=== PATIENT | female | born 1960 | race Caucasian/White ===

== ENCOUNTER 2019-01-20 12:11 | Inpatient (IN) | payer MEDICARE, MEDICAID ==
[2019-01-20] VITALS: BP 91/57
[~2019-01-20] VITALS: Ht 157.5 cm; Wt 78.8 kg
[2019-01-20] MEDS ORDERED: PROTONIX20 MG (12:18)
[2019-01-20] MEDS ORDERED: PROVERA2.5 MG (12:18)
[2019-01-20] MEDS ORDERED: FUROSEMIDE10 MG/M1 (12:19)
[2019-01-20] MEDS ORDERED: LISINOPRIL2.5 MG (12:19)
[2019-01-20] MEDS ORDERED: SANDIMMUNE25 MG (12:19)
[2019-01-20] MEDS ORDERED: PREDNISONE1 MG (12:19)
[2019-01-20] MEDS ORDERED: MORPHINE SULFAT15 M4 (12:19)
[2019-01-20 12:55] LABS: BASOPHILS 0.2 % (0-2); EOSINOPHILS 0.7 % (0-7); HEMATOCRIT 34.4 % (36.0-48.0); HEMOGLOBIN 11.3 g/dL (12-16); IMMATURE GRANULOCYTES 0.2 % (0-5); LYMPHOCYTES 7.5 % (15-50); MCHC 32.8 g/dL (31.0-37.0); MCV 85.4 fL (80.0-100.0); MEAN PLATELET VOLUME 9.6 fL (7.4-10.4); NEUTROPHILS 82.4 % (40-80); PLATELET COUNT 311 10x3/uL (130-400); RBC 4.03 10x6/uL (4.00-5.40); RDW 14.2 % (11.5-14.5); WBC 12.6 10x3/uL (4.8-10.8)
[2019-01-20 13:18] LABS: ALKALINE PHOSPHATASE 149 U/L (46-116); BILIRUBIN - TOTAL 1.25 mg/dL (0.2-1.3); CALC OSMOLALITY 274 mosm/kg (275-300); CALCIUM 9.7 mg/dL (8.5-10.1); CARBON DIOXIDE 18.7 mmol/L (21.0-32.0); CHLORIDE - SERUM 100 mmol/L (98-107); CREATININE - SERUM 1.7 mg/dL (0.6-1.3); GLUCOSE 200 mg/dL (74-106); POTASSIUM - SERUM 4.5 mmol/L (3.5-5.1); PROTEIN - SERUM 7.2 g/dL (6.4-8.2); SODIUM 130 mmol/L (136-145); UREA NITROGEN 34 mg/dL (7-18); eGFR NON AFRICAN AMERICAN 33 mL/min (90-120)
[2019-01-20 13:30] LABS: ALBUMIN 2.5 g/dL (3.4-5.0); ALT (SGPT) < 6 U/L (10-68)
--- NOTE | 2019-01-20 17:15 | NUR ---
PT PULLED OUT IV AT THIS TIME. FLUID BOLUS STOPPED. ATTEMPTING TO OBTAIN IV ACCESS AT THIS TIME.
[2019-01-20 18:20] LABS: APPEARANCE CLEAR (CLEAR); BILIRUBIN NEGATIVE (NEGATIVE); COLOR BROWN (YELLOW); GLUCOSE NEGATIVE (NEGATIVE); KETONE NEGATIVE (NEGATIVE); NITRITE NEGATIVE (NEGATIVE); PROTEIN 1+ mg/dL (NEGATIVE); UROBILINOGEN NORMAL (NORMAL)
[2019-01-20 18:23] LABS: EPITHELIAL CELLS 0-5 /hpf (0-5); RED CELLS - URINE 0-5 /hpf (0-5)
[2019-01-20 18:24] LABS: BACTERIA MANY /hpf (NONE SEEN); YEAST <1+ /hpf (NONE SEEN)
--- NOTE | 2019-01-20 19:16 | NUR ---
REPORT TO ALLISON GODINEZ
--- NOTE | 2019-01-20 20:50 | NUR ---
PT ARRIVED VIA BED. TRANSFERRED PT OVER BY SHEET TO UNIT BED WITH ASSISTANCE OF ER NURSE AND METAL BUGGY OPERATOR. CL IN REACH. BED IN LOW SIDE RAILS X2. DENIES NEEDS AT THIS TIME. A/O X4. WCTM
[2019-01-20 21:09] VITALS: BP 91/57
[2019-01-20] MEDS ORDERED: ESTRACE 0.5 MG0.5 MG PO (21:34)
[2019-01-20] MEDS ORDERED: ROCALTROL0.5 MCG PO (21:35)
[2019-01-20] MEDS ORDERED: VITAMIN D31000 UNIT PO (21:36)
--- NOTE | 2019-01-20 23:15 | NUR ---
PT COMPLAINING OF NECK AND BACK PAIN. PRN MORPHINE GIVEN IN R HAND/WRIST IV PER MAR. ALSO PLACED ON BEDPAN. INCONT BEFORE PLACED ON BEDPAN. WCTM
[2019-01-20 23:23] VITALS: BP 115/58
--- NOTE | 2019-01-20 23:41 | NUR ---
EDUCATED PT ABOUT SCD'S AND THE IMPORTANCE OF HAVING THEM SINCE SHE HAS NOT BEEN OUT OF BED MUCH. PT STATED "OKAY ILL GIVE THEM A TRY". THIS NURSE GOES AND GETS MACHINE AND ATTACHES IT TO PT AND THIS NURSE TURNS THE MACHINE ON FOR 2 SECONDS AND PT STATES "NO I CANT DO THIS THEY ARE ALREADY IRRITATING ME" THIS NURSE EDUCATED THAT SHE HAD NOT HAD THEM ON LONG AND PT STATED " IV HAD THESE BEFORE AND IM SORRY I CANT WEAR THEM." REMOVED SCD'S AND THEY ARE IN PT'S ROOM IF NEEDED. PT IS REFUSING SCD
[2019-01-21 00:24] VITALS: BP 91/57; BMI 26.8
--- NOTE | 2019-01-21 00:32 | NUR ---
ALERT AND ORIENTED X4. UP AD MC. RIGHT LEG SWOLLEN AND PT STATES THT 'S NOT NORMAL. NO REDNESS OR SWELLING AND HAS ROM. IV TO RIGHT WRIST WITH NO REDNESS OR SWELLING AND DSG INTACT. MARYAN AREA UNDER LEFT EYE. AREA IS CIRCULAR IN SHAPE. WEARS BRIEFS IN BED. DENIES ANY NEEDS AT THIS TIME.
--- NOTE | 2019-01-21 00:34 | NUR ---
OPEN AREA TO TOP OF THIRD DIGIT ON RIGHT HAND. PT STATES IT WAS A BLISTER.
--- NOTE | 2019-01-21 03:27 | NUR ---
I have reviewed this patient and I concur with the Shift Assessment completed by the Licensed Practical Nurse today this shift.
[2019-01-21 04:00] VITALS: BP 98/56
--- NOTE | 2019-01-21 05:42 | NUR ---
PT RESTING QUIETLY. CL IN REACH. NO DISTRESS NOTED. CPOC
[2019-01-21 07:45] LABS: BASOPHILS 0.2 % (0-2); EOSINOPHILS 4.1 % (0-7); HEMATOCRIT 29.5 % (36.0-48.0); HEMOGLOBIN 9.4 g/dL (12-16); IMMATURE GRANULOCYTES 0.2 % (0-5); MCH 26.9 pg (26.0-34.0); MCHC 31.9 g/dL (31.0-37.0); MCV 84.3 fL (80.0-100.0); MEAN PLATELET VOLUME 9.4 fL (7.4-10.4); MONOCYTES 8.3 % (2-11); NEUTROPHILS 75.2 % (40-80); PLATELET COUNT 319 10x3/uL (130-400); RDW 14.3 % (11.5-14.5); WBC 10.2 10x3/uL (4.8-10.8)
[2019-01-21 07:57] VITALS: BP 148/81
[2019-01-21 08:15] LABS: ANION GAP 13.7 mmol/L (8-16); CALCIUM 9.8 mg/dL (8.5-10.1); CARBON DIOXIDE 22.6 mmol/L (21.0-32.0); CREATININE - SERUM 1.9 mg/dL (0.6-1.3); MAGNESIUM - SERUM 1.5 mg/dL (1.8-2.4); PHOSPHOROUS 3.6 mg/dL (2.5-4.9); POTASSIUM - SERUM 4.3 mmol/L (3.5-5.1)
--- NOTE | 2019-01-21 12:33 | NUR ---
I have reviewed this patient and I concur with the Shift Assessment completed by the Licensed Practical Nurse today this shift.
[2019-01-21 12:50] VITALS: BP 172/86
[2019-01-21 13:12] VITALS: BMI 26.7
[2019-01-21 16:15] VITALS: Ht 157.5 cm; Wt 78.8 kg
[2019-01-21 16:52] VITALS: BP 158/89
--- NOTE | 2019-01-21 19:10 | NUR ---
PT ALERT AND ORIENTED LCTA SKIN WARM AND DRY PULSES INTACT EDEMA TO FEET MORE SO ON THE RT PT MOST COINCERNED ABOUT MEDS AND LAB VALUES BED LOW AND LOCKED AND CALL LIGHT IS WITH PT
[2019-01-21 20:00] VITALS: BP 154/88
[2019-01-22 04:00] VITALS: BP 150/76
[2019-01-22 04:46] LABS: BASOPHILS 0.1 % (0-2); EOSINOPHILS 1.9 % (0-7); HEMATOCRIT 28.1 % (36.0-48.0); HEMOGLOBIN 9.1 g/dL (12-16); IMMATURE GRANULOCYTES 0.2 % (0-5); LYMPHOCYTES 15.3 % (15-50); MCH 27.2 pg (26.0-34.0); MCHC 32.4 g/dL (31.0-37.0); MCV 83.9 fL (80.0-100.0); MEAN PLATELET VOLUME 9.2 fL (7.4-10.4); MONOCYTES 8.3 % (2-11); NEUTROPHILS 74.2 % (40-80); PLATELET COUNT 319 10x3/uL (130-400); RBC 3.35 10x6/uL (4.00-5.40); RDW 14.2 % (11.5-14.5); WBC 8.9 10x3/uL (4.8-10.8)
[2019-01-22 05:08] LABS: ANION GAP 16.4 mmol/L (8-16); CALCIUM 9.3 mg/dL (8.5-10.1); CARBON DIOXIDE 21.1 mmol/L (21.0-32.0); CREATININE - SERUM 1.5 mg/dL (0.6-1.3); POTASSIUM - SERUM 4.5 mmol/L (3.5-5.1)
--- NOTE | 2019-01-22 07:23 | NUR ---
INITIAL ROUNDING, BEDSIDE SHIFT REPORT COMPLETE. PATIENT IS AWAKE AND WATCHING TV IN THE SEMI FOWLERS POSITION. SHE REPORTS PAIN OF 7/10 IN HER LEGS, SHE IS AWAITING A VENOUS DOPPLER TO BE DONE ORDERED. CALL LIGHT IN REACH, REFUSING SCD PER RIPPER OPERATOR NURSE.
[2019-01-22 08:30] VITALS: BP 149/79
[2019-01-22 12:59] VITALS: BP 167/91
[2019-01-22 14:22] LABS: % SATURATION 7 % (15-55); IRON 10 ug/dl (35-150); TOTAL IRON BIND CAPACITY 139 ug/dl (260-445); UNSAT IRON BIND CAPACITY 129 ug/dl (150-375)
[2019-01-22 16:04] VITALS: BP 184/112
--- NOTE | 2019-01-22 19:45 | NUR ---
ROUNDS COMPLETED. AAOX3, PT NO S/S OF DISTRESS. PT STATES SHE WOULD LIKE TO BACK ON HER LASIX. STATES SHE HAS NOT BEEN GETTING IT SINCE SHE WAS ADMITTED TO THE HOSPITAL. I NOTIFIED PT THAT THE LASIX IS NOT IN HER HOME AND HOSPITAL MED MED LIST. SHE STATES SHE WILL JUST HAVE TO WAIT TILL SHE GETS HOME BEFORE SHE RESTART HER LASIX. PT LEG SWOLLEN. SWELLING MORE PROMINENT ON RIGHT KNEE. PREVIOUS BP PRIOR TO SHIFT CHANGE IN 180'S. WILL REASSESS AND NOTIFYTHE DOCTOR. PT DENIES ANY FURTHER NEEDS AT THIS TIME. NO IV INFUSING AT THIS TIME. OUTGOING NURSE STATES PT REFUSED HER NS. WILL CPOC. CL WITHIN REACH.
--- NOTE | 2019-01-22 19:51 | NUR ---
ON REASSESSMENT. BP NOW IN 140'S. WILL CTM
[2019-01-22 20:00] VITALS: BP 146/80
[2019-01-23] VITALS: BP 154/79
--- NOTE | 2019-01-23 00:44 | NUR ---
PT C/O NAUSEA. PRN IV ZOFRAN GIVEN. WILL CTM.
[2019-01-23 04:00] VITALS: BP 166/94
[2019-01-23 05:40] LABS: BASOPHILS 0.3 % (0-2); EOSINOPHILS 1.3 % (0-7); HEMOGLOBIN 9.2 g/dL (12-16); IMMATURE GRANULOCYTES 0.4 % (0-5); LYMPHOCYTES 16.5 % (15-50); MCH 27.5 pg (26.0-34.0); MCHC 32.9 g/dL (31.0-37.0); MCV 83.6 fL (80.0-100.0); MEAN PLATELET VOLUME 9.4 fL (7.4-10.4); MONOCYTES 6.9 % (2-11); NEUTROPHILS 74.6 % (40-80); PLATELET COUNT 314 10x3/uL (130-400); RBC 3.35 10x6/uL (4.00-5.40); RDW 14.2 % (11.5-14.5); WBC 6.7 10x3/uL (4.8-10.8)
[2019-01-23 05:54] LABS: ANION GAP 16.1 mmol/L (8-16); CALCIUM 9.7 mg/dL (8.5-10.1); CARBON DIOXIDE 19.2 mmol/L (21.0-32.0); CREATININE - SERUM 1.5 mg/dL (0.6-1.3); POTASSIUM - SERUM 4.3 mmol/L (3.5-5.1)
--- NOTE | 2019-01-23 07:25 | NUR ---
REPORT RECEIVED. WILL CONTINUE WITH POC. PT CURRENTLY LYING SEMI FOWLERS. CALL LIGHT W/I REACH. PT REQUESTED TO BE PLACED ON BEPAN. PT PLACED ON BEDPAN AND TAKEN OFF WHERE PT VOIDED LARGE AMOUNT OF RUST COLORED URINE. NO S/S OF DISTRESS NOTED. RR EVEN AND UNLABORED ON RA. R.FOR PIV IS SALINE LOCKED. PT DENIES ANY NEEDS. WILL CTM.
--- NOTE | 2019-01-23 10:07 | MORECARE ---
CASE MANAGEMENT DISCHARGE SUMMARY PATIENT: JANELLE KATZ UNIT: [id number] ADM DATE: 01/20/19 AGE: 58 : 60 SEX: F ROOM/BED: D.2102 AUTHOR: JORGE PAEZ PHYSICIAN: REFERRING PHYSICIAN: MATTHEW ZUÑIGA MD DATE OF SERVICE: 01/23/19 Discharge Plan Patient Name: JANELLE KATZ Facility: [facility]:[place] : 1960 Planned Disposition: Home Anticipated Discharge Date: 01/23/19 Discharge Date: Expected LOS: 3 Initial Reviewer: [email or web address] Initial Review Date: 01/23/2019 Generated: 01/23/19 9:55 am Coverage Notice Reviewer: [email or web address] Irineo Carter Notice Issued Date-Time: 01/23/2019 8:35 Notice Type: IM Discharge Notice Notice Delivered To: Patient Relationship to Patient: Home Day Care Provider Name: Delivery Method: HAND - Hand Delivered Aniya Days: Prior Verbal Notification: Recipient Understood Notice: Yes Recipient Signature: Yes Med Rec Note Co-signed by Attending: Coverage Notice Comment: Patient Name: JANELLE KATZ Page [phone] at 1007 All edits/amendments must be made on the electronic document DICTATION DATE: 01/23/19 0855 STOCK CAR DRIVER: TRES 01/23/19 0855 RPT#: [id number] DC DATE: STATUS: ADM IN [place] [address] [place] [address] END OF REPORT
--- NOTE | 2019-01-23 10:07 | MORECARE ---
CASE MANAGEMENT DISCHARGE SUMMARY PATIENT: JANELLE KATZ UNIT: [id number] ADM DATE: 01/20/19 AGE: 58 : 60 SEX: F ROOM/BED: D.2103 AUTHOR: PHILIPPE,DOC PHYSICIAN: REFERRING PHYSICIAN: MATTHEW ZUÑIGA MD DATE OF SERVICE: 01/23/19 Discharge Plan Patient Name: JANELLE KATZ Facility: [facility]:[place] : 1960 Planned Disposition: Home Anticipated Discharge Date: 01/23/19 Discharge Date: Expected LOS: 3 Initial Reviewer: [email or web address] Initial Review Date: 01/23/2019 Generated: 01/23/19 10:01 am Comments DCP- Discharge Planning Updated by [id number]: Masood Carter on 01/23/19 7:[address] Patient Name: JANELLE KATZ Admission Status: ER Accout number: [id number] Admission Date: 01-20-2019 : 1960 Admission Diagnosis:NAUSEA WITH VOMITING, UNSPECIFIED Attending: MATTHEW ZUÑIGA Current LOS: 3 Anticipated DC Date: 01-23-2019 Planned Disposition: Home Primary Insurance: [employer] CHOICE PPO MCR ADVANT Discharge Planning Comments: CM MET WITH PT IN ROOM TO DISCUSS DISCHARGE PLANNING AND NEEDS. PT REPORTS LIVING AT HOME INDEPENDENTLY AND ALONE. PT HAS WALKER AND WHEELCHAIR THAT SHE DOES NOT USE CURRENTLY WITH NO MEDICAL EQUIPMENT PROVIDER PREFERENCE. PT HAS NO OUTSIDE SERVICES ASSISTING IN THE HOME. CM DISCUSSED AVAILABILITY OF HOME HEALTH, REHAB SERVICES AND MEDICAL EQUIPMENT. PT DENIES DISCHARGE NEEDS, REPORTS HER UNCLE WILL PICK HER UP FOR DISCHARGE HOME. IMPORTANT MESSAGE FROM MEDICARE PROVIDED AND EXPLAINED. PT STATES SHE WILL NOT DISCHARGE FROM THE HOSPITAL WITHOUT SPEAKING TO THE DOCTOR. CM NOTIFIED TARA VILLASENOR. PT PLANS TO DISCHARGE HOME ALONE, HAS NO ANTICIPATED NEEDS, FAMILY TO TRANSPORT HOME. CM TO FOLLOW AND ASSIST IF NEEDED. Back Tacker: Masood Carter DCPIA - Discharge Planning Initial Assessment Updated by [id number]: Masood Carter on 01/23/19 8:56 am * Is the patient Alert and Oriented? Yes * How many steps to enter\exit or inside your home? NONE * PCP DR. TAHIR CORTEZ, [place] * Pharmacy [facility], [place] * Preadmission Environment Home Alone * ADLs Independent * Equipment Walker Wheelchair * Other Equipment NO MEDICAL EQUIPMENT PROVIDER PREFERENCE * List name and contact numbers for known caregivers / representatives who currently or will assist patient after discharge: CAITLYN AYAAN, DTR, KATE VILLEDA, SON, * Verbal permission to speak to the caregivers and representatives has been obtained from the patient. N/A * Community resources currently utilized None * Please name any agencies selected above. NONE * Additional services required to return to the preadmission environment? No * Can the patient safely return to the preadmission environment? Yes * Has this patient been hospitalized within the prior 30 days at any hospital? No Coverage Notice Reviewer: [id number] Irineo Carter Notice Issued Date-Time: 01/23/2019 8:35 Notice Type: IM Discharge Notice Notice Delivered To: Patient Relationship to Patient: Want Ad Supervisor Name: Delivery Method: HAND - Hand Delivered Aniya Days: Prior Verbal Notification: Recipient Understood Notice: Yes Recipient Signature: Yes Med Rec Note Co-signed by Attending: Coverage Notice Comment: Last DP export: 01/23/19 7:55 a Patient Name: JANELLE KATZ Page [phone] at 1007 All edits/amendments must be made on the electronic document DICTATION DATE: 01/23/19900 PETROLEUM BLENDING PLANT OPERATOR: TRES 01/23/19900 RPT#: [id number] DC DATE: STATUS: ADM IN [facility] [address] [place] [address] END OF REPORT
[2019-01-23] MEDS ORDERED: OMNICEF300 MG PO (12:11)
--- NOTE | 2019-01-23 12:15 | NUR ---
Nutrition Follow-up: Pt reports tolerating PO intake; eating >=50% of meals. Noted plans to d/c. Diet: Regular Wt: 174# Last BM: DIRECTOR OF INSTRUCTION per pt Labs reviewed Meds reviewed Rec continue current diet as tolerated. [place] food preferences. RD following.
--- NOTE | 2019-01-23 14:01 | NUR ---
PERSONAL MEDICATION BROUGHT BACK FROM PHARMACY AND PT SIGNED PROPER PAPERWORK. WILL CTM.
--- NOTE | 2019-01-23 14:23 | NUR ---
PT DISCHARGED HOME VIA WHEELCHAIR WITH FAMILY. PIV REMOVED WITH CATHETER TIP FULLY INTACT. PT SIGNED PROPER DISCHARGE INSTRUCTION AND REMOVED ALL VALUABLES FROM THE ROOM.
--- NOTE | 2019-01-24 06:26 | MORECARE ---
CASE MANAGEMENT DISCHARGE SUMMARY PATIENT: JANELLE KATZ UNIT: [id number] ADM DATE: 01/20/19 AGE: 58 : 60 SEX: F ROOM/BED: D.2109 AUTHOR: PHILIPPE,DOC PHYSICIAN: REFERRING PHYSICIAN: MATTHEW ZUÑIGA MD DATE OF SERVICE: 01/24/19 Discharge Plan Patient Name: JANELLE KATZ Facility: [facility]:[place] : 1960 Planned Disposition: Home Anticipated Discharge Date: 01/23/19 Discharge Date: 01/23/2019 Expected LOS: 3 Initial Reviewer: [email or web address] Initial Review Date: 01/23/2019 Generated: 01/24/19 7:25 am Comments DCP- Discharge Planning Updated by [id number]: Masood Carter on 01/23/19 7:[address] Patient Name: JANELLE KATZ Admission Status: ER Accout number: [id number] Admission Date: 01-20-2019 : 1960 Admission Diagnosis:NAUSEA WITH VOMITING, UNSPECIFIED Attending: MATTHEW ZUÑIGA Current LOS: 3 Anticipated DC Date: 01-23-2019 Planned Disposition: Home Primary Insurance: [employer] CHOICE PPO MCR ADVANT Discharge Planning Comments: CM MET WITH PT IN ROOM TO DISCUSS DISCHARGE PLANNING AND NEEDS. PT REPORTS LIVING AT HOME INDEPENDENTLY AND ALONE. PT HAS WALKER AND WHEELCHAIR THAT SHE DOES NOT USE CURRENTLY WITH NO MEDICAL EQUIPMENT PROVIDER PREFERENCE. PT HAS NO OUTSIDE SERVICES ASSISTING IN THE HOME. CM DISCUSSED AVAILABILITY OF HOME HEALTH, REHAB SERVICES AND MEDICAL EQUIPMENT. PT DENIES DISCHARGE NEEDS, REPORTS HER UNCLE WILL PICK HER UP FOR DISCHARGE HOME. IMPORTANT MESSAGE FROM MEDICARE PROVIDED AND EXPLAINED. PT STATES SHE WILL NOT DISCHARGE FROM THE HOSPITAL WITHOUT SPEAKING TO THE DOCTOR. CM NOTIFIED TARA VILLASENOR. PT PLANS TO DISCHARGE HOME ALONE, HAS NO ANTICIPATED NEEDS, FAMILY TO TRANSPORT HOME. CM TO FOLLOW AND ASSIST IF NEEDED. Copy Editor: Masood Carter DCPIA - Discharge Planning Initial Assessment Updated by [id number]: Masood Carter on 01/23/19 8:56 am * Is the patient Alert and Oriented? Yes * How many steps to enter\exit or inside your home? NONE * PCP DR. TAHIR CORTEZ, [place] * Pharmacy [facility], [place] * Preadmission Environment Home Alone * ADLs Independent * Equipment Walker Wheelchair * Other Equipment NO MEDICAL EQUIPMENT PROVIDER PREFERENCE * List name and contact numbers for known caregivers / representatives who currently or will assist patient after discharge: CAITLYN AYAAN, DTR, KATE VILLEDA, SON, * Verbal permission to speak to the caregivers and representatives has been obtained from the patient. N/A * Community resources currently utilized None * Please name any agencies selected above. NONE * Additional services required to return to the preadmission environment? No * Can the patient safely return to the preadmission environment? Yes * Has this patient been hospitalized within the prior 30 days at any hospital? No Coverage Notice Reviewer: [id number] Irineo Carter Notice Issued Date-Time: 01/23/2019 8:35 Notice Type: IM Discharge Notice Notice Delivered To: Patient Relationship to Patient: Bar Machine Operator Production Name: Delivery Method: HAND - Hand Delivered Aniya Days: Prior Verbal Notification: Recipient Understood Notice: Yes Recipient Signature: Yes Med Rec Note Co-signed by Attending: Coverage Notice Comment: Last DP export: 01/23/19 8:02 a Patient Name: JANELLE KATZ Page [phone] at 0626 All edits/amendments must be made on the electronic document DICTATION DATE: 01/24/19624 TYPEWRITER OPERATOR AUTOMATIC: TRES 01/24/19624 RPT#: [id number] DC DATE:01/23/19 STATUS: DIS IN [facility] [address] [place] [address] END OF REPORT
== END 2019-01-23 14:24 | disposition home or self-care (01) | DRG 872 ==
LOC: D.ER 12:11 → D.M2 19:18
PROVIDERS: Family Medicine; ADMIT Internal Medicine Nephrology; ATTEND Internal Medicine Nephrology
DX: A41.9 Sepsis, unspecified organism (principal); N39.0 Urinary tract infection, site not specified; N17.9 Acute kidney failure, unspecified; E87.1 Hypo-osmolality and hyponatremia; Z94.1 Heart transplant status; I10 Essential (primary) hypertension; D64.9 Anemia, unspecified; Z79.899 Other long term (current) drug therapy

== ENCOUNTER 2019-03-16 12:51 | Inpatient (IN) | payer MEDICARE, MEDICAID ==
[~2019-03-16] VITALS: Ht 162.6 cm; Wt 58.1 kg
[~2019-03-16 12:51] MED LIST: ESTRACE 0.5 MG0.5 MG PO; FUROSEMIDE10 MG/M1; LISINOPRIL2.5 MG; MORPHINE SULFAT15 M4; OMNICEF300 MG PO; PREDNISONE1 MG; PROTONIX20 MG; PROVERA2.5 MG; ROCALTROL0.5 MCG PO; SANDIMMUNE25 MG; VITAMIN D31000 UNIT PO
[2019-03-16 13:50] LABS: APPEARANCE CLEAR (CLEAR); BILIRUBIN NEGATIVE (NEGATIVE); COLOR YELLOW (YELLOW); GLUCOSE NEGATIVE (NEGATIVE); KETONE NEGATIVE (NEGATIVE); NITRITE POSITIVE (NEGATIVE); PROTEIN 1+ mg/dL (NEGATIVE); UROBILINOGEN NORMAL (NORMAL)
[2019-03-16 13:51] LABS: BACTERIA MANY /hpf (NEGATIVE); EPITHELIAL CELLS 0-5 /hpf (0-5); RED CELLS - URINE 0-5 /hpf (0-5); WHITE CELLS - URINE 0-5 /hpf (NEGATIVE)
[2019-03-16 13:58] LABS: UDS - AMPHET NEGATIVE QUAL (NEGATIVE); UDS - BARB NEGATIVE QUAL (NEGATIVE); UDS - BENZO POSITIVE QUAL (NEGATIVE); UDS - COCAINE NEGATIVE QUAL (NEGATIVE); UDS - OPIATE POSITIVE QUAL (NEGATIVE); UDS - PCP NEGATIVE QUAL (NEGATIVE); UDS - THC NEGATIVE QUAL (NEGATIVE)
[2019-03-16 14:01] LABS: BASOPHILS 0.2 % (0-2); HEMOGLOBIN 10.4 g/dL (12-16); IMMATURE GRANULOCYTES 0.4 % (0-5); MCH 26.2 pg (26.0-34.0); MCHC 31.5 g/dL (31.0-37.0); MCV 83.1 fL (80.0-100.0); MEAN PLATELET VOLUME 9.2 fL (7.4-10.4); MONOCYTES 6.8 % (2-11); NEUTROPHILS 84.6 % (40-80); PLATELET COUNT 352 10x3/uL (130-400); RBC 3.97 10x6/uL (4.00-5.40); RDW 15.4 % (11.5-14.5); WBC 19.3 10x3/uL (4.8-10.8)
[2019-03-16 14:09] LABS: APTT 35.8 SECONDS (22.8-39.4); INR 1.21 (0.85-1.17); PROTIME 14.8 SECONDS (11.6-15.0)
[2019-03-16 14:17] LABS: ALKALINE PHOSPHATASE 143 U/L (46-116); ALT (SGPT) 27 U/L (10-68); BILIRUBIN - TOTAL 0.45 mg/dL (0.2-1.3); CALC OSMOLALITY 283 mosm/kg (275-300); CALCIUM 10.2 mg/dL (8.5-10.1); CARBON DIOXIDE 24.3 mmol/L (21.0-32.0); CHLORIDE - SERUM 103 mmol/L (98-107); CREATININE - SERUM 1.4 mg/dL (0.6-1.3); PROTEIN - SERUM 7.5 g/dL (6.4-8.2); SODIUM 137 mmol/L (136-145); UREA NITROGEN 33 mg/dL (7-18); eGFR NON AFRICAN AMERICAN 41 mL/min (90-120)
[2019-03-16 14:18] LABS: GLUCOSE 158 mg/dL (74-106)
[2019-03-16 14:27] LABS: CKMB 2.3 U/L (0.0-3.6); CREATINE KINASE 98 UL (21-215); TROPONIN-I 0.024 ng/mL (0.000-0.060)
[2019-03-16 15:22] VITALS: BP 168/90
[2019-03-16 17:01] VITALS: BP 149/92; BMI 23.4
[2019-03-16] MEDS ORDERED: AMBIEN10 MG PO (17:26)
[2019-03-16] MEDS ORDERED: XANAX0.5 MG (17:27)
[2019-03-16 17:47] LABS: % SATURATION 3 % (15-55); IRON 10 ug/dl (35-150); TOTAL IRON BIND CAPACITY 273 ug/dl (260-445); UNSAT IRON BIND CAPACITY 263 ug/dl (150-375)
[2019-03-16 19:00] VITALS: BP 155/91
--- NOTE | 2019-03-16 19:25 | NUR ---
LYING IN BED. INCONT OF BOWELS. DIARRHEA NOTED. COMPLETE LINEN CHANGE DONE. OFFERED BATH AT THIS TIME AND PT REFUSED. PERICARE PERFORMED BY BUTTON SEWER HAND. ALERT AND ORIENTED. GEN WEAKNESS NOTED. NO N/V NOTED. TELEMETRY SHOWS SR WITH RATE OF 94. NS @ 100 ML/HR INFUSING IN RT FOREARM WITHOUT DIFF. C/O GEN PAIN RATING 9. MEDICATED WITH NORCO ORDERED. ZACHARY ALARM IN USE. REFUSES TO WEAR YELLOW GOWN. SR ELEVATED X2. CL IN REACH.
[2019-03-17] VITALS: BP 155/86
--- NOTE | 2019-03-17 01:49 | NUR ---
NO N/V SO FAR THIS SHIFT. HAS SLEPT WELL. LYING ON RT SIDE IN BED WITH EYES CLOSED. RESP EVEN AND NONLABORED. ZACHARY ALARM IN USE FOR PT SAFETY. CL IN REACH.
[2019-03-17 04:00] VITALS: BP 158/80
[2019-03-17 04:47] LABS: BASOPHILS 0.2 % (0-2); EOSINOPHILS 2.4 % (0-7); HEMATOCRIT 29.7 % (36.0-48.0); HEMOGLOBIN 9.3 g/dL (12-16); IMMATURE GRANULOCYTES 0.3 % (0-5); MCH 26.3 pg (26.0-34.0); MCHC 31.3 g/dL (31.0-37.0); MCV 83.9 fL (80.0-100.0); MONOCYTES 8.8 % (2-11); NEUTROPHILS 77.3 % (40-80); PLATELET COUNT 353 10x3/uL (130-400); RBC 3.54 10x6/uL (4.00-5.40); RDW 15.6 % (11.5-14.5)
[2019-03-17 05:13] LABS: ALBUMIN 2.6 g/dL (3.4-5.0); ANION GAP 14.7 mmol/L (8-16); BILIRUBIN - TOTAL 0.51 mg/dL (0.2-1.3); CALCIUM 9.6 mg/dL (8.5-10.1); CARBON DIOXIDE 22.7 mmol/L (21.0-32.0); CREATININE - SERUM 1.2 mg/dL (0.6-1.3); MAGNESIUM - SERUM 1.4 mg/dL (1.8-2.4); POTASSIUM - SERUM 4.4 mmol/L (3.5-5.1); PROTEIN - SERUM 6.8 g/dL (6.4-8.2)
--- NOTE | 2019-03-17 07:30 | NUR ---
PATIENT ASSISTED ON AND OFF THE BEDPAN. CL IN REACH. POSSE ALARM ON. NO FURTHER NEEDS AT THIS TIME. WCTM
[2019-03-17 08:11] VITALS: BP 169/93
--- NOTE | 2019-03-17 10:31 | NUR ---
VISITOR IN ROOM. CL IN REACH. NO NEEDS AT THIS TIME. PATIENT LAYING ON RIGHT SIDE.
--- NOTE | 2019-03-17 13:32 | NUR ---
DISCHARGE INSTRUCTIONS GIVEN. IV THERAPY DC'ED FROM LEFT HAND. IN ROOM. REFUSES WHEELCHAIR OUT. BROUGHT UP CONCERN OVER A BLISTER ON INSIDE OF RIGHT KNEE. PATIENT SAYS HE BURNT IT ON A SPACE HEATER. CONCERNS ABOUT NEEDING A COLONOSCOPY AND PROSTATE EXAM. WELL DRY LEGS. TOLD THEM THEY COULD TELL DR ZUÑIGA'S OFFICE WHEN THEY CALL FOR AN APPOINTMENT.
--- NOTE | 2019-03-17 13:34 | NUR ---
PATIENT REQUESTED A AILEEN DIET SPRITE, ICE, BLANKET, SOCKS AND BOUDREAUXS CREAM. ALSO APPLIED BABY POWDER UNDER ABDOMINAL FOLDS AND BREASTS PATIENT REQUESTED. CL IN REACH. NO FURTHER NEEDS AT THIS TIME.
[2019-03-17 14:15] VITALS: BP 142/92
[2019-03-17 14:23] VITALS: Ht 162.6 cm; Wt 58.1 kg
[2019-03-17 16:41] VITALS: BP 153/87
--- NOTE | 2019-03-17 19:30 | NUR ---
PATIENT LYIN IN BED. PATIENT COMPLAINING OF NECK PAIN. PATIENT STATES PAIN IS A 9/10. RE-ADJUSTED PILLOWS AND TOWELS UNDER HER NECK. GAVE PATIENT A HEAT PACK. ENCOURAGED PATIENT TO CALL WITH NEEDS. BED IN LOW POSITION. CALL LIGHT AND BEDSIDE TABLE WITHIN REACH.
[2019-03-17 20:24] VITALS: BP 159/89
[2019-03-18 00:30] VITALS: BP 131/79
[2019-03-18 05:11] VITALS: BP 160/89
[2019-03-18 05:34] LABS: BASOPHILS 0.4 % (0-2); EOSINOPHILS 7.4 % (0-7); HEMATOCRIT 31.6 % (36.0-48.0); HEMOGLOBIN 9.9 g/dL (12-16); IMMATURE GRANULOCYTES 0.2 % (0-5); LYMPHOCYTES 16.4 % (15-50); MCH 26.4 pg (26.0-34.0); MCHC 31.3 g/dL (31.0-37.0); MCV 84.3 fL (80.0-100.0); MEAN PLATELET VOLUME 8.9 fL (7.4-10.4); NEUTROPHILS 67.6 % (40-80); PLATELET COUNT 349 10x3/uL (130-400); RBC 3.75 10x6/uL (4.00-5.40); RDW 15.6 % (11.5-14.5)
[2019-03-18 05:45] LABS: WBC 8.5 10x3/uL (4.8-10.8)
[2019-03-18 06:21] LABS: ALBUMIN 2.8 g/dL (3.4-5.0); ANION GAP 15.5 mmol/L (8-16); BILIRUBIN - TOTAL 0.39 mg/dL (0.2-1.3); CALCIUM 9.8 mg/dL (8.5-10.1); CARBON DIOXIDE 23.8 mmol/L (21.0-32.0); CREATININE - SERUM 1.1 mg/dL (0.6-1.3); MAGNESIUM - SERUM 1.5 mg/dL (1.8-2.4); POTASSIUM - SERUM 4.3 mmol/L (3.5-5.1); PROTEIN - SERUM 6.5 g/dL (6.4-8.2)
--- NOTE | 2019-03-18 08:00 | NUR ---
ASSESSMENT PER FLOW SHEET. PT IS WITHOUT DISTRESS.CALL LIGHT IN REACH
[2019-03-18 08:28] VITALS: BP 171/99
[2019-03-18] MEDS ORDERED: FLAGYL500 MG PO (12:33)
[2019-03-18] MEDS ORDERED: LEVAQUIN750 MG PO (12:33)
[2019-03-18 13:13] VITALS: BP 168/94
--- NOTE | 2019-03-18 15:52 | NUR ---
DISCHARGE INSTRUCTIONS,STATES UNDERSTANDING.IV DCD WITH CATH TIP INTACT.
--- NOTE | 2019-03-18 16:02 | NUR ---
LEFT UNIT VIA WHEELCHAIR FOR TRANSPORT HOME
== END 2019-03-18 16:03 | disposition home or self-care (01) | DRG 872 ==
LOC: D.ER 12:51 → D.MS 15:40
PROVIDERS: Emergency Medicine; Family Medicine; ADMIT Internal Medicine Nephrology; ATTEND Internal Medicine Nephrology
DX: A41.9 Sepsis, unspecified organism (principal); N39.0 Urinary tract infection, site not specified; Z94.1 Heart transplant status; N17.9 Acute kidney failure, unspecified; K52.9 Noninfective gastroenteritis and colitis, unspecified; E86.0 Dehydration; Z79.899 Other long term (current) drug therapy; D64.9 Anemia, unspecified